=== PATIENT | male | born 1995 ===

== ENCOUNTER 2017-01-20 21:22 | Emergency (ER) | payer MEDICAID ==
[2017-01-20 22:15] VITALS: BP 144/81; PULSE 114; RESP 20; TEMP 97.7; O2SAT 100
--- NOTE | 2017-01-20 23:05 | C.PDOC ---
History Of Present Illness A 21 y/o M c/o pain and swelling to the right ankle since this morning. Pt mechanically fell and twisted his ankle. Took no meds for pain. Applied ice to the area [employer]. Denies weakness, numbness, head injury, or any other complaints. Time Seen by Provider: 01/20/17 22:26 Chief Complaint (Nursing): Lower Extremity Problem/Injury History Per: Patient History/Exam Limitations: no limitations Onset/Duration Of Symptoms: Hrs Current Symptoms Are (Timing): Still Present Severity: Mild Recent travel outside of the [place]: No Additional History Per: Patient - Ankle/Foot Description Of Injury: Fell, Twisted Alleviating Factor(s): Ice Therapy Past Medical History Reviewed: Historical Data, Nursing Documentation, Vital Signs Vital Signs: Last Vital Signs Temp 97.7 F 01/20/17 22:11 Pulse 114 H 01/20/17 22:11 Resp 20 01/20/17 22:11 BP 144/81 01/20/17 22:11 Pulse Ox 100 01/20/17 23:49 Family History: States: Unknown Family Hx - Social History Hx Alcohol Use: No Hx Substance Use: No Review Of Systems Except As Marked, All Systems Reviewed And Found Negative. Constitutional: Negative for: Other (Head injury) Musculoskeletal: Positive for: Foot Pain (Right ankle) Neurological: Negative for: Weakness, Numbness Physical Exam - Physical Exam Appears: Non-toxic, No Acute Distress Skin: Warm, Dry Head: Atraumatic, Normacephalic Extremity: Capillary Refill (<2secs), No Deformity, Swelling (Moderate swelling to the right lateral malleolus.) Extremity: Right: Limited ROM To Joint (Due to pain, Right ankle) Pulses: Left Dorsalis Pedis: Normal, Right Dorsalis Pedis: Normal Neurological/Psych: Oriented x3, Normal Speech, Normal Motor, Normal Sensation, Other (No focal deficit) ED Course And Treatment O2 Sat by Pulse Oximetry: 100 (RA) Pulse Ox Interpretation: Normal Progress Note: Impression: A 21 y/o M c/o pain and swelling to the right ankle since this morning. Plans: Motrin, XRAY right foot, Reassess. XRAY right ankle : No acute fractures or dislocations. Ankle placed in zamzam wrap and air cast by RN. PT is resting comfortably and is in no acute distress. Pt instructed on crutch walking and to rest, ice, and elevate foot. PT was instructed to follow up with orthopedist for further evaluations. Disposition Counseled Patient/Family Regarding: Diagnosis, Need For Followup - Disposition Referrals: Martin Fernandez Jr., MD [Medical Doctor] - Disposition: HOME/ ROUTINE Disposition Time: 23:04 Condition: STABLE Additional Instructions: Please follow up with PMD for orth referral as needed Leg elevation Apply ICE Motrin for pain Return to ER if worse Prescriptions: Ibuprofen [Motrin Tab] 800 mg PO QID #20 tab Instructions: Ankle Sprain (ED), Ankle Stirrup Splint (ED) Forms: [employer]([place]) [employer] ([place] Islander), Work Excuse - Clinical Impression Clinical Impression: Ankle sprain - Scribe Statement The provider has reviewed the documentation as recorded by the Scribrocío mitchell All medical record entries made by the Miguelibe were at my direction and personally dictated by me. I have reviewed the chart and agree that the record accurately reflects my personal performance of the history, physical exam, medical decision making, and the department course for this patient. I have also personally directed, reviewed, and agree with the discharge instructions and disposition.
--- NOTE | 2017-01-21 10:23 | RAD ---
PROCEDURE: Right Ankle Radiographs. HISTORY: r/o fx COMPARISON: None available. FINDINGS: BONES: No acute displaced fracture. JOINTS: No dislocation. SOFT TISSUES: Marked soft tissue swelling. No evidence of radiopaque foreign body. OTHER FINDINGS: None. IMPRESSION: Marked soft tissue swelling. No acute displaced fracture, dislocation, or significant joint effusion identified. If symptoms persist or if there is clinical concern, x-ray follow-up in 7-10 days should be considered.
== END 2017-01-20 23:18 | disposition home or self-care (01) ==
LOC: C.ER 21:22
DX: S93.401A Sprain of unspecified ligament of right ankle, initial encounter (principal); W18.30XA Fall on same level, unspecified, initial encounter